=== PATIENT | male | born 1990 | race African-American/Black ===

== ENCOUNTER 2016-07-23 23:50 | Emergency (ER) | payer OTHER ==
[~2016-07-23] VITALS: Ht 185.4 cm; Wt 99.8 kg
[~2016-07-23 23:50] MED LIST: NAPROSYN500 MG PO; NOHOMEMEDICATIONS; NORCO 5-325 TA1 EACH PO
[2016-07-24 01:24] VITALS: BP 121/70
== END 2016-07-24 01:25 | disposition home or self-care (01) ==
LOC: ER 23:50
DX: S09.8XXA Other specified injuries of head, initial encounter (principal); F17.210 Nicotine dependence, cigarettes, uncomplicated; F10.99 Alcohol use, unspecified with unspecified alcohol-induced disorder; W18.09XA Striking against other object with subsequent fall, initial encounter; Y93.89 Activity, other specified; Y92.89 Other specified places as the place of occurrence of the external cause; Y99.8 Other external cause status

== ENCOUNTER 2019-01-04 08:05 | Emergency (ER) | payer OTHER ==
[~2019-01-04] VITALS: Ht 185.4 cm; Wt 108.9 kg
[2019-01-04 09:08] VITALS: BP 141/56
== END 2019-01-04 09:13 | disposition home or self-care (01) ==
LOC: ER 08:05
DX: S80.12XA Contusion of left lower leg, initial encounter (principal); F17.210 Nicotine dependence, cigarettes, uncomplicated; W20.8XXA Other cause of strike by thrown, projected or falling object, initial encounter; Y92.89 Other specified places as the place of occurrence of the external cause; Y93.89 Activity, other specified; Y99.0 Civilian activity done for income or pay